=== PATIENT | female | born 1940 | race Two or more races ===

== ENCOUNTER 2025-03-14 17:20 | Inpatient (IN) | payer OTHER, MEDICAID ==
[~2025-03-14] VITALS: Ht 162.6 cm; Wt 80.0 kg
--- NOTE | 2025-03-14 17:35 | ECG ---
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
--- NOTE | 2025-03-14 17:53 | ED.PDOC ---
HPI Comments HPI: 85 year old female presents to the ED with a chief complaint of chest pain onset today around 10:00. Daughter states patient began experiencing LT sided chest pain as well as LT arm numbness. Upon ED arrival, patient states symptoms have slightly improved. Denies fever, chills, shortness of breath, dizziness, headache, nausea, vomiting. No other symptoms or modifying factors present at this time Initial Vitals BP: 189/77 HR: 83 RR:18 O2 Sat: 96% Temp: 97.5 F Past Medical history: HTN, HLD, Glaucoma Past Surgical history: RT foot surgery, eye surgery Medications: Denies Social History: Denies smoking, ETOH, and drug use. Allergies: NKDA Coleman; cp, htn, LUE NUMBNESS normal exam. obese. HPI: Poor Historian. REVIEW OF SYSTEMS: CONSTITUTIONAL: Denies acute: fever, diaphoresis, chills, generalized weakness. HEAD: Denies acute: headache, photophobia Eyes: Denies acute: Double vision, vision loss, eye pain, eye discharge. EARS: Denies acute: tinnitus, hearing loss, ear discharge, ear pain, THROAT: Denies acute: sore throat, swelling, difficulty swallowing , pain with swallowing, change in voice. NECK: Denies acute: neck pain, neck swelling, stiff neck. HEART: Denies acute : , palpitations, LUNGS: Denies acute: SOB, wheezing, cough, hemoptysis ABDOMEN: Denies acute: abdominal pain, Nausea, Vomiting, diarrhea, melena , hematemesis, hematochezia SKIN: Denies acute: rash, redness, lesions, itchiness. EXTREMITIES: Denies acute: calf pain, weakness, Denies acute: Low back pain. Neuro: Denies acute: focal neurological deficit, motor or sensory focal neurological deficit, tremors, seizure like activity, confusion, dizziness, change in mental status, loss of bowel or bladder function, cauda equina like symptoms. : Denies acute: dysuria, hematuria, flank pain, increase in urinary frequency. PSYCH: Denies acute: hallucination, suicidal ideation, homicidal ideation. FEMALE: Denies acute: abnormal vaginal bleeding, foul odor, unusual discharge. PHYSICAL EXAM: General: ----no----acute distress, awake and alert. Head: normocephalic, atraumatic. No raccoon's eyes, no arevalo sign. Neck: supple, trachea is midline, no swelling. Throat: Normal phonation. Eyes:, no erythema, no purulent discharge, no proptosis, no icterus. Heart: regular rate, regular rhythm, no significant murmur appreciated. Lungs: no apparent respiratory distress, Able to speak in full sentences. No wheezing, no rhonchi, no crackles. No stridors Clear to auscultation bilaterally. Abdomen: non tender to palpation, non distended, soft, no guarding, no rebound, + bowel sounds. Obese Neuro: Awake, Alert, oriented to name, self, situation, follows commands GCS=15. Speech is normal. Skin: no petechia, no purpura, no cyanosis, non-pale, not jaundice. Lower extremities: --trace - Pitting edema no deformity, no focal swelling, no calf TTP. Makes eye contact. moves all four extremities. Face: no apparent facial droop. Ambulating in the ED independently. ED COURSE: DISCLAIMER: This medical document was created using an electronic medical record system with voice recognition software and computerized dictation system. Although this doc ument has been carefully reviewed, there might still be some phonetic and typographical errors. Occasional wrong-word or "sound-alike" substitutions may have occurred due to the inherent limitations of voice recognition software. These areas are purely typographical due to imperfections of the software programs and do not reflect any compromise in the patient's medical care. Please read the chart carefully and recognize, using context, where these substitutions have occurred. 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 Was a procedure done?: No X-Ray, Labs, Meds, VS Vital Signs Date Time Temp Pulse Resp B/P (MAP) Pulse Ox O2 Delivery O2 Flow Rate FiO2 03/14/25 19:46 97.8 78 18 134/95 (108) 96 97.8 03/14/25 17:53 79 03/14/25 17:34 79 03/14/25 17:25 97.5 83 18 189/77 96 97.5 Lab Test 03/14/25 19:20 03/14/25 18:09 Range/Units Troponin I High Sensitivity 3 L 3 L </=34 ng/L White Blood Count 6.1 4.4-10.8 10^3/uL Red Blood Count 4.13 4.0-5.20 10^6/uL Hemoglobin 13.6 12.2-16.2 g/dL Hematocrit 39.5 36.0-46.0 % Mean Corpuscular Volume 95.6 80.0-100.0 fL Mean Corpuscular Hemoglobin 33.0 H 28.0-32.0 pg Mean Corpuscular Hemoglobin Concent 34.5 32.0-36.0 g/dL Red Cell Distribution Width 12.0 11.8-14.3 % Platelet Count 200 140-450 10^3/uL Mean Platelet Volume 8.9 6.9-10.8 fL Neutrophils (%) (Auto) 61.1 37.0-80.0 % Lymphocytes (%) (Auto) 32.2 10.0-50.0 % Monocytes (%) (Auto) 6.1 0.0-12.0 % Eosinophils (%) (Auto) 0.3 0.0-7.0 % Basophils (%) (Auto) 0.3 0.0-2.0 % Neutrophils # (Auto) 3.7 1.6-8.6 10 ^3/uL Lymphocytes # (Auto) 2.0 0.4-5.4 10 ^3/uL Monocytes # (Auto) 0.4 0-1.3 10 ^3/uL Eosinophils # (Auto) 0 0-0.8 10 ^3/uL Basophils # (Auto) 0 0-0.2 10 ^3/uL Nucleated Red Blood Cells 0.1 % Sodium Level 139 136-145 mmol/L Potassium Level 3.5 3.5-5.1 mmol/L Chloride Level 106 98-107 mmol/L Carbon Dioxide Level 24 20-31 mmol/L Anion Gap 9 5-15 Blood Urea Nitrogen 17 9-23 mg/dL Creatinine 0.77 0.550-1.02 mg/dL Glomerular Filtration Rate Calc 76 >90 mL/min BUN/Creatinine Ratio 22.1 H 10.0-20.0 Serum Glucose 161 H 74-106 mg/dL Calcium Level 9.4 8.7-10.4 mg/dL Total Bilirubin 0.3 0.2-1.0 mg/dL Aspartate Amino Transferase (AST) 34 13-40 U/L Alanine Aminotransferase (ALT) 45 H 7-40 U/L Alkaline Phosphatase 53 46-116 U/L B-Type Natriuretic Peptide 58.66 0-100 pg/mL Total Protein 7.4 5.7-8.2 g/dL Albumin 4.4 3.2-4.8 g/dL [place] [id number] Ph: [phone] DIAGNOSTIC IMAGING Diagnostic Imaging Report : [id number] Signed PATIENT: NATALEE LOCKHART ACCT: [id number] UNIT: [id number] : 1940 LOC: ER ROOM / BED: / AGE / SEX: 85 / F ADM STATUS: REG ER SERVICE [id number] ORDERING PHYSICIAN: OLIVIA MENSAH DO PROCEDURE(s): CXRP - CHEST PORTABLE REASON: cp ORDER NUMBER(s): [id number], ACCESSION NUMBER(s): [id number] CHEST RADIOGRAPH INDICATION: cp TECHNIQUE: Single frontal view of the chest was obtained COMPARISON: None FINDINGS: Lines and Tubes: None Lungs: Scattered reticular opacities may reflect atypical pneumonia or pulmonary interstitial edema. No focal consolidation. Pleura: No effusion. No pneumothorax. Cardiomediastinal contours: Unremarkable Bones: No acute osseous abnormality. IMPRESSION: 1. Scattered reticular opacities may reflect atypical pneumonia or pulmonary interstitial edema. No focal consolidation. ATED BY: MEGA BUSBY MD DICTATED DATE/TIME: 03/14/251812 SIGNED BY: MEGA BUSBY MD SIGNED DATE/TIME: 03/14/251812 CC: Time of 1ST Reevaluation: 18:20 Reevaluation 1ST: Unchanged Patient Education/Counseling: Diagnosis, Treatment Family Education/Counseling: Diagnosis, Treatment Departure 1 Departure Time of Disposition: 18:54 Impression: Primary Impression: Chest pain Additional Impression: Hypertension Disposition: 09 ADMITTED INPATIENT Admit to: Tele Condition: Guarded Discharged With: Self Critical Care Note Critical Care Time?: No Heart Score Heart Score: Heart Score Response (Comments) Value Age >65 2 Total 2 I personally scribed for OLIVIA MENSAH DO ([email or web address]) on 03/14/25 at 17:53. E lectronically submitted by Sariah Multani ([email or web address]). I personally scribed for OLIVIA MENSAH DO ([email or web address]) on 03/14/25 at 20:11. Elect ronically submitted by Sariah Multani ([email or web address]). OLIVIA MENSAH DO Mar 14, 2025 17:53
--- NOTE | 2025-03-14 18:15 | DVH ---
CHEST RADIOGRAPH INDICATION: cp TECHNIQUE: Single frontal view of the chest was obtained COMPARISON: None FINDINGS: Lines and Tubes: None Lungs: Scattered reticular opacities may reflect atypical pneumonia or pulmonary interstitial edema. No focal consolidation. Pleura: No effusion. No pneumothorax. Cardiomediastinal contours: Unremarkable Bones: No acute osseous abnormality. IMPRESSION: 1. Scattered reticular opacities may reflect atypical pneumonia or pulmonary interstitial edema. No focal consolidation.
[2025-03-14 18:49] LABS: Hematocrit 39.5 % (36.0-46.0); Hemoglobin 13.6 g/dL (12.2-16.2); Mean Corpuscular Hemoglobin 33.0 pg (28.0-32.0); Mean Corpuscular Volume 95.6 fL (80.0-100.0); Nucleated Red Blood Cells % 0.1 %
[2025-03-14 19:03] LABS: Alkaline Phosphatase 53 U/L (46-116)
[2025-03-14 19:04] LABS: Albumin 4.4 g/dL (3.2-4.8); Anion Gap 9 (5-15); BUN/Creatinine Ratio 22.1 (10.0-20.0); Bilirubin, Total 0.3 mg/dL (0.2-1.0); Blood Urea Nitrogen 17 mg/dL (9-23); Calcium 9.4 mg/dL (8.7-10.4); Carbon Dioxide 24 mmol/L (20-31); Chloride 106 mmol/L (98-107); Potassium 3.5 mmol/L (3.5-5.1); Sodium 139 mmol/L (136-145); Total Protein 7.4 g/dL (5.7-8.2)
[2025-03-14 19:10] LABS: Alanine Aminotransferase 45 U/L (7-40); Glucose 161 mg/dL (74-106)
[2025-03-14] MEDS: ASPirin-EC 325mg tab PO ONE (20:43)
[2025-03-14] MEDS: NITROGLYCERIN 0.4 MG SL TAB SL ONE (20:44)
[2025-03-14] MEDS ORDERED: NITROGLYCERIN 0.4 MG SL TAB SL PRN (20:45)
[2025-03-14] MEDS ORDERED: ONDANSETRON HCL 4 MG/2 ML VIAL IV PRN (20:45)
[2025-03-14] MEDS ORDERED: MORPHINE SULFATE INJ 2 MG/ml SYRG IV PRN (20:45)
--- NOTE | 2025-03-14 21:24 | DVHHPRES ---
History of Present Illness Resident Creating Document: NAEEM BRAVO RESIDENT History of Present Illness Patient is a 85-year-old Polish-speaking female with past medical history of hypertension, hyperlipidemia, came to the ED with chief complaints of chestpain which is 7/10 in intensity, nonradiating, increased with exertion, decreased with rest and associated with left arm numbness since 1 week. Patient states with the pain comes and goes and is also associated with hot flashes, and mild shortness of breath. PMHx: hypertension, hyperlipidemia PSHx: toe surgery, cataract surgery Family history: reviewed, noncontributory Social history: denies smoking, drinking, drug use Home medication: pravastatin, hydrochlorothiazide Allergic history: denies Patient seen in the lobby. Patient describes chest pressure as for over 10 int ensity, has left arm numbness and denies any fever, chills, nausea, vomiting, diarrhea, abdominal pain, heartburn , shortness for breath. Patient's chest every time she gets a hot flashes she gets daily and these worsen the symptoms since 1 week. Review of Systems Constitutional: No: Fever, Chills, Sweats, Weakness, Malaise, Other Eyes: No: Pain, Vision change, Conjunctivae inflammation, Eyelid inflammation, Other, Redness ENT: No: Ear pain, Ear discharge, Nose pain, Nose discharge, Nose congestion, Mouth pain, Mouth swelling, Throat pain, Throat swelling, Other Respiratory: Shortness of breath; No: Cough, Dry, SOB with excertion, Wheezing, Hemoptysis, Pleuritic Pain, Sputum, Wheezing, Other Cardiovascular: Chest Pain; No: Palpitations, Orthopnea, Paroxysmal Noc. Dyspnea, Edema, Lt Headedness, Other Gastrointestinal: No: Nausea, Vomiting, Abdominal Pain, Diarrhea, Constipation, Melena, Hematochezia, Other Genitourinary: No Dysuria, No Frequency, No Incontinence, No Hematuria, No Retention, No Other Musculoskeletal: No: other, neck pain, shoulder pain, arm pain, back pain, hand pain, leg pain, foot pain Skin: No: Rash, Lesions, Jaundice, Bruising, Other Neurological: No: Weakness, Numbness, Incoordination, Change in speech, Confusion, Seizures, Other Allergies: Coded Allergies: NO KNOWN ALLERGIES (Unverified , 03/14/25) Medications Current Medications Medications Dose Ordered Sig/Rola Route Start Time Stop Time Status Last Admin Dose Admin Ondansetron HCl 4 mg Q4HP PRN IV 03/14/25 20:45 Enoxaparin Sodium 40 mg DAILY SC 03/15/25 10:00 Nitroglycerin 0.4 mg Q5MINP PRN SL 03/14/25 20:45 Morphine Sulfate 2 mg Q30M PRN IV 03/14/25 20:45 Atorvastatin Calcium 40 mg HS PO 03/14/25 22:00 Lisinopril 10 mg DAILY PO 03/15/25 10:00 Metoprolol Succinate 25 mg DAILY PO 03/15/25 10:00 Aspirin 81 mg DAILY PO 03/15/25 10:00 Exam Vital Signs Vital Signs Date Time Temp Pulse Resp B/P (MAP) Pulse Ox O2 Delivery O2 Flow Rate FiO2 03/14/25 20:51 97.8 76 17 161/72 (101) 94 97.8 Exam General: Patient alert and oriented in person, place and time. Patient following commands. HEENT: Normocephalic, atraumatic, moist mucous membranes Respiratory/pulmonary: Clear lungs bilaterally, vesicular murmurs present in almost all lung donaldson, no associated crackles or wheezes. Cardiovascular: Normal heart sounds S1 and S2 with no associated murmurs Abdomen: Abdomen nondistended, there is no pain to palpation in any of the abdominal quadrants, no palpable masses. Extremities: There is no peripheral edema present at the lower extremities. Peripheral Pulses: 3+ Radial (R). 3+ Radial (L). 3+ Dorsalis pedis (R). 3+ Dorsalis pedis(L) Skin: No rashes or pruritus, there is no sacral edema present at this time. Neurological: Intact cranial nerves with no focal neurologic deficits Labs/Xrays Labs Test 03/14/25 19:20 03/14/25 18:09 Range/Units Troponin I High Sensitivity 3 L </=34 ng/L White Blood Count 6.1 4.4-10.8 10^3/uL Red Blood Count 4.13 4.0-5.20 10^6/uL Hemoglobin 13.6 12.2-16.2 g/dL Hematocrit 39.5 36.0-46.0 % Mean Corpuscular Volume 95.6 80.0-100.0 fL Mean Corpuscular Hemoglobin 33.0 H 28.0-32.0 pg Mean Corpuscular Hemoglobin Concent 34.5 32.0-36.0 g/dL Red Cell Distribution Width 12.0 11.8-14.3 % Platelet Count 200 140-450 10^3/uL Mean Platelet Volume 8.9 6.9-10.8 fL Neutrophils (%) (Auto) 61.1 37.0-80.0 % Lymphocytes (%) (Auto) 32.2 10.0-50.0 % Monocytes (%) (Auto) 6.1 0.0-12.0 % Eosinophils (%) (Auto) 0.3 0.0-7.0 % Basophils (%) (Auto) 0.3 0.0-2.0 % Neutrophils # (Auto) 3.7 1.6-8.6 10 ^3/uL Lymphocytes # (Auto) 2.0 0.4-5.4 10 ^3/uL Monocytes # (Auto) 0.4 0-1.3 10 ^3/uL Eosinophils # (Auto) 0 0-0.8 10 ^3/uL Basophils # (Auto) 0 0-0.2 10 ^3/uL Nucleated Red Blood Cells 0.1 % Sodium Level 139 136-145 mmol/L Potassium Level 3.5 3.5-5.1 mmol/L Chloride Level 106 98-107 mmol/L Carbon Dioxide Level 24 20-31 mmol/L Anion Gap 9 5-15 Blood Urea Nitrogen 17 9-23 mg/dL Creatinine 0.77 0.550-1.02 mg/dL Glomerular Filtration Rate Calc 76 >90 mL/min BUN/Creatinine Ratio 22.1 H 10.0-20.0 Serum Glucose 161 H 74-106 mg/dL Calcium Level 9.4 8.7-10.4 mg/dL Total Bilirubin 0.3 0.2-1.0 mg/dL Aspartate Amino Transferase (AST) 34 13-40 U/L Alanine Aminotransferase (ALT) 45 H 7-40 U/L Alkaline Phosphatase 53 46-116 U/L B-Type Natriuretic Peptide 58.66 0-100 pg/mL Total Protein 7.4 5.7-8.2 g/dL Albumin 4.4 3.2-4.8 g/dL SEPSIS Sepsis Screen Date sepsis recognized/suspect: Mar 14, 2025 Time Sepsis recognized/suspect: 2043 Recent Procedure: No On Antibiotic Therapy: No Respiratory Rate >20: No Heart Rate >90: No Temp<36 C (96.8 F) or >38.3 C: No SBP <90 or MAP <65 mmHG: No New Acute Mental Status Change: No Is the patient on CPAP, BIPAP,: No Physician Orders Stock Car Driver (03/14/25 ) Chest Portable (03/14/25 17:50) Electrocardigram (03/14/25 20:32) Admit (03/14/25 20:43) Ondansetron Hcl (Zofran) (03/14/25 20:45) Enoxaparin Sodium (Lovenox) (03/15/25 10:00) Complete Blood Count (03/15/25 04:00) Comprehensive Metabolic Panel (03/15/25 04:00) Cardiac Diet-2gna,Lofat,Lochol (03/15/25 Breakfast) Condition: Serious (03/14/25 20:43) Bedrest With Bathroom Privileg (03/14/25 20:43) Nitroglycerin Sublingual (Ntrostat Subli (03/14/25 20:45) Morphine Sulfate Injection (03/14/25 20:45) Oxygen By Nasal Cannula (03/14/25 20:43) Stat Ekg For Chest Pain (03/14/25 20:43) Notify Md Of Changes From Base (03/14/25 20:43) Rink Rat For 24 Hours (03/14/25 20:43) Emergency Dysrhythmia Protocol (03/14/25 20:43) Rhythm Strips Once Every Shift (03/14/25 20:43) Urinalysis (03/14/25 20:49) Drug Screen (03/14/25 20:49) Lipid Panel (03/14/25 20:49) Hemoglobin A1c (03/14/25 20:49) Atorvastatin (Lipitor) (03/14/25 22:00) Lisinopril Tablet (Zestril Tablet) (03/15/25 10:00) Metoprolol Xl Succinate (Toprol Xl) (03/15/25 10:00) Aspirin Chewable Tablet (03/15/25 10:00) Pantoprazole Tablet (Protonix Tablet) (03/15/25 06:00) Vital Signs Date Time Temp Pulse Resp B/P (MAP) Pulse Ox O2 Delivery O2 Flow Rate FiO2 03/14/25 20:51 97.8 76 17 161/72 (101) 94 97.8 03/14/25 20:44 97.8 76 17 161/72 (101) 94 97.8 03/14/25 20:44 161/72 03/14/25 19:46 97.8 78 18 134/95 (108) 96 97.8 03/14/25 17:53 79 03/14/25 17:34 79 03/14/25 17:25 97.5 83 18 189/77 96 97.5 Laboratory Tests Test 03/14/25 18:09 White Blood Count 6.1 10^3/uL (4.4-10.8) Medications Medications Dose Ordered Sig/Rola Route Start Time Stop Time Status Last Admin Dose Admin Aspirin 325 mg ONCE ONCE PO 03/14/25 18:00 03/14/25 18:01 DC 03/14/25 20:43 325 MG Nitroglycerin 0.4 mg ONCE ONCE SL 03/14/25 18:00 03/14/25 18:01 DC 03/14/25 20:44 0.4 MG Assessment/Plan Assessment/Plan Chest pain, rule out ACS unstable angina hypertensive urgency hypertension Hyperlipidemia - EKG reviewed and unremarkable - aspirin loading dose - aspirin 81 mg - atorvastatin 40 mg - lisinopril 10 mg - metoprolol succinate 25 mg - check HbA1c - check lipid panel Obesity BMI 30.2 - patient counseled on exercise, diet, lifestyle modification for 18 minutes Diet: Cardiac PPI prophylaxis: pantoprazole DVT prophylaxis: Lovenox Goals of care addressed with the patient for more than 27 minutes: Full code status Case discussed with Dr. Anderson , patient and nurse Plan discussed with: Patient My Orders Orders - NAEEM BRAVO RESIDENT Procedure Category Date Status Time Admit ADMIT 03/14/25 Transmitted 20:43 Ondansetron Hcl PHA 03/14/25 In Process (Zofran) 20:45 Enoxaparin Sodium PHA 03/15/25 In Process (Lovenox) 10:00 Complete Blood Count LAB 03/15/25 Verified 04:00 Comprehensive LAB 03/15/25 Verified Metabolic Panel 04:00 Cardiac DIET 03/15/25 Transmitted Diet-2gna,Lofat,Lochol Breakfast Condition: Serious VIKTOR 03/14/25 In Process 20:43 Bedrest With Bathroom VIKTOR 03/14/25 In Process Privileg 20:43 Nitroglycerin PHA 03/14/25 In Process Sublingual (Ntrostat 20:45 Morphine Sulfate PHA 03/14/25 In Process Injection 20:45 Oxygen By Nasal RT 03/14/25 Transmitted Cannula 20:43 Stat Ekg For Chest VIKTOR 03/14/25 In Process Pain 20:43 Notify Of Changes VIKTOR 03/14/25 In Process From Base 20:43 Rink Rat For [facility] 03/14/25 In Process 24 Hours 20:43 Emergency Dysrhythmia [facility] 03/14/25 In Process Protocol 20:43 Rhythm Strips Once VIKTOR 03/14/25 In Process Every Shift 20:43 Urinalysis LAB 03/14/25 Logged 20:49 Drug Screen LAB 03/14/25 Logged 20:49 Lipid Panel LAB 03/14/25 In Process 20:49 Hemoglobin A1c LAB 03/14/25 In Process 20:49 Atorvastatin (Lipitor) PHA 03/14/25 In Process 22:00 Lisinopril Tablet PHA 03/15/25 In Process (Zestril Tablet) 10:00 Metoprolol Xl PHA 03/15/25 In Process Succinate (Toprol Xl) 10:00 Aspirin Chewable PHA 03/15/25 In Process Tablet 10:00 Pantoprazole Tablet PHA 03/15/25 Logged (Protonix Tablet) 06:00 Visit Coding STANDARD RES Billing Provider: STERLING ANDERSON MD Date of Service if different f: Mar 14, 2025 Common Visit Codes: [id number] INP/OBS CARE (HIGH) Secondary Visit Codes: [id number] CARE PLAN 30 MINUTES NAEEM BRAVO RESIDENT Mar 14, 2025 21:24
[2025-03-14] MEDS: ATORVASTATIN 20 MG TAB PO SCH (21:33)
[2025-03-14] MEDS: LISINOPRIL 5 MG TAB PO ONE (21:34)
[2025-03-14 21:53] LABS: Urine Protein, UAD Negative (Negative)
[2025-03-14 21:53] LABS: Cholesterol 197 mg/dL (< 200); HDL Cholesterol 59 mg/dL (40-59)
[2025-03-14 21:56] LABS: Triglycerides 157 mg/dL (< 150)
[2025-03-14 22:02] LABS: Amphetamine Screen, Urine Neg (NEGATIVE); Barbiturate Scree,Urine Neg (NEGATIVE); Benzodiazephine Screen, Urine Neg (NEGATIVE); Cannabinoid Screen, Urine Neg (NEGATIVE); Cocaine Screen, Urine Neg (NEGATIVE); Opiate Scree,Urine Neg (NEGATIVE); Phencyclidine Screen, Urine Neg (NEGATIVE)
[2025-03-14 23:01] VITALS: PULSE 79; RESP 19; O2SAT 96
[2025-03-14] MEDS ORDERED: HYDR25TA5 PO (23:11)
[2025-03-14] MEDS ORDERED: PRAV20TA3 PO (23:11)
[2025-03-15] VITALS (8 sets, daily range): BP systolic 105–142; BP diastolic 46–78; PULSE 56–93; RESP 12–19; TEMP 97.3–98.7; O2SAT 95–99
[2025-03-15] MEDS: PANTOPRAZOLE 40 MG TAB PO SCH (05:39)
[2025-03-15 05:58] LABS: Hematocrit 38.5 % (36.0-46.0); Hemoglobin 13.2 g/dL (12.2-16.2); Mean Corpuscular Hemoglobin 32.8 pg (28.0-32.0); Mean Corpuscular Volume 95.3 fL (80.0-100.0); Nucleated Red Blood Cells % 0.2 %
[2025-03-15 06:17] LABS: Alanine Aminotransferase 37 U/L (7-40); Albumin 3.8 g/dL (3.2-4.8); Anion Gap 10 (5-15); BUN/Creatinine Ratio 25.0 (10.0-20.0); Bilirubin, Total 0.5 mg/dL (0.2-1.0); Blood Urea Nitrogen 14 mg/dL (9-23); Calcium 9.0 mg/dL (8.7-10.4); Carbon Dioxide 26 mmol/L (20-31); Chloride 105 mmol/L (98-107); Sodium 141 mmol/L (136-145); Total Protein 6.4 g/dL (5.7-8.2)
[2025-03-15 06:20] LABS: Alkaline Phosphatase 42 U/L (46-116); Glucose 124 mg/dL (74-106); Potassium 3.3 mmol/L (3.5-5.1)
[2025-03-15 07:17] LABS: INR 1.02 (0.9-1.15); Partial Thromboplastin Time 25.5 SEC (24.5-34.5); Prothrombin Time 10.8 sec (9.3-11.8)
[2025-03-15] MEDS: LISINOPRIL 5 MG TAB PO SCH (10:14)
[2025-03-15] MEDS: METOPROLOL SUCCINATE XL 50 MG TAB PO SCH (10:14)
[2025-03-15] MEDS: ENOXAPARIN SOD 40 MG/0.4 ML SYRINGE SC SCH (10:16)
--- NOTE | 2025-03-15 13:28 | DVHPN2 ---
Subjective Patient denies any symptoms at this time. Reviewed: Care Plan, H&P, Labs, Medications Changes from previous H/P or p: No Changes General: Per HPI Eyes: No Pain, No Vision change, No Conjunctivae inflammation, No Eyelid inflammation, No Other, No Redness ENT: No Ear pain, No Ear discharge, No Nose pain, No Nose discharge, No Nose congestion, No Mouth pain, No Mouth swelling, No Throat pain, No Throat swelling, No Other Cardiovascular: Chest Pain; No Palpitations, No Orthopnea, No Paroxysmal Noc. Dyspnea, No Edema, No Lt Headedness, No Other Respiratory: No Cough, No Dry; Shortness of breath; No SOB with excertion, No Wheezing, No Hemoptysis, No Pleuritic Pain, No Sputum, No Other Gastrointestinal: No Nausea, No Vomiting, No Abdominal Pain, No Diarrhea, No Constipation, No Melena, No Hematochezia, No Other Genitourinary: No Dysuria, No Frequency, No Incontinence, No Hematuria, No Retention, No Other Musculoskeletal: No other, No neck pain, No shoulder pain, No arm pain, No back pain, No hand pain, No leg pain, No foot pain Skin: No Rash, No Lesions, No Jaundice, No Bruising, No Other Objective Vitals Vital Signs Date Time Temp Pulse Resp B/P (MAP) Pulse Ox O2 Delivery O2 Flow Rate FiO2 03/15/25 12:48 97.3 56 17 130/69 (89) 99 97.3 03/15/25 08:00 Room Air* 0 21 21 Intake/Output Intake and Output 03/15/25 07:00 Intake Total 550 ml Balance 550 ml Intake Oral 550 ml # Voids 2 General Appearance: Alert, Oriented X3, Cooperative, No acute distress HEENT: Atraumatic, PERRLA Lungs: Clear to auscultation, Normal air movement Cardiovascular: Normal S1, Normal S2 Abdomen: Normal bowel sounds, Soft, No tenderness Genitourinary: No Apparent Abnormalities Musculoskeletal: Normal sensory function, Normal motor function Neuro: Normal gait, Normal speech Skin: Dry, Intact Psych/Mental Status: Mental status NL, Mood NL Medications Current Medications Medications Dose Ordered Sig/Rola Route Start Time Stop Time Status Last Admin Dose Admin Ondansetron HCl 4 mg Q4HP PRN IV 03/14/25 20:45 Enoxaparin Sodium 40 mg DAILY SC 03/15/25 10:00 03/15/25 10:16 40 MG Atorvastatin Calcium 40 mg HS PO 03/14/25 22:00 03/14/25 21:33 40 MG Lisinopril 10 mg DAILY PO 03/15/25 10:00 03/15/25 10:14 10 MG Metoprolol Succinate 25 mg DAILY PO 03/15/25 10:00 03/15/25 10:14 25 MG Aspirin 81 mg DAILY PO 03/15/25 10:00 03/15/25 10:15 81 MG Pantoprazole Sodium 40 mg DAILY@0600 PO 03/15/25 06:00 03/15/25 05:39 40 MG Laboratory Results Laboratory Tests 03/15/25 05:20 Chemistry Test 03/14/25 18:09 03/15/25 05:20 Albumin 4.4 g/dL (3.2-4.8) 3.8 g/dL (3.2-4.8) Calcium Level 9.4 mg/dL (8.7-10.4) 9.0 mg/dL (8.7-10.4) Total Protein 7.4 g/dL (5.7-8.2) 6.4 g/dL (5.7-8.2) Coagulation Test 03/15/25 05:20 Prothrombin Time 10.8 sec (9.3-11.8) Prothrombin Time INR 1.02 (0.9-1.15) Activated Partial Thromboplast Time 25.5 SEC (24.5-34.5) Lipid panel Test 03/14/25 19:20 Cholesterol Level 197 mg/dL (< 200) HDL Cholesterol 59 mg/dL (40-59) Triglycerides Level 157 mg/dL (< 150) H Cardiac Markers Test 03/14/25 18:09 B-Type Natriuretic Peptide 58.66 pg/mL (0-100) LFT Test 03/14/25 18:09 03/15/25 05:20 Alanine Aminotransferase (ALT) 45 U/L (7-40) H 37 U/L (7-40) Alkaline Phosphatase 53 U/L (46-116) 42 U/L (46-116) L Aspartate Amino Transferase (AST) 34 U/L (13-40) 28 U/L (13-40) Total Bilirubin 0.3 mg/dL (0.2-1.0) 0.5 mg/dL (0.2-1.0) HgA1c, TSH Test 03/14/25 18:09 03/15/25 05:20 Hemoglobin A1c 7.9 % A1C (<5.7) H Thyroid Stimulating Hormone (TSH) 1.69 uIU/mL (0.55-4.78) Urinalysis Test 03/14/25 20:57 Urine Color Colorless (Yellow) Urine Clarity Clear (Clear) Urine pH 5.5 (5.0-9.0) Urine Specific [place] 1.009 (1.001-1.035) Urine Protein Negative (Negative) Urine Ketones Negative (Negative) Urine Blood Negative /uL (Negative) Urine Nitrite Negative (Negative) Urine Bilirubin Negative (Negative) Urine Urobilinogen Normal mg/dL (Negative) Urine Leukocyte Esterase 2+ /uL (Negative) Urine RBC <1 /hpf (0 - 4) Urine Microscopic WBC 6 /HPF (0-5) H Urine Squamous Epithelial Cells Few /hpf (<5) Urine Bacteria None seen /hpf (None Seen) Urine Glucose Normal mg/dL (Normal) Labs and/or images reviewed: Labs reviewed by me, Image(s) reviewed by me Assessment/Plan Assessment/Plan Impression: -ACS -dyslipidemia -primary hypertension -diabetes mellitus -obesity Plan: -cardiology consultation -echocardiogram, results pending -ACS protocol -regular insulin sliding scale -troponins x3 negative Total time spent with patient discussing and formulating plan of care: 35 minutes. This medical document was created using an electronic medical record system with [employer] dictation system. Although this document has been carefully reviewed, there may still be some phonetic and typographical errors. These areas are purely typographical due to imperfections of the software programs, and do not reflect any compromise in the patient's medical care. Plan discussed with: Patient, Other (RN) My Orders Orders - MALLORY NATH NP Procedure Category Date Status Time * Cardiology Consult CONS 03/15/25 Transmitted 13:18 Potassium Effervesent PHA 03/15/25 Verified Tab (Klor-Con/Ef) 13:30 Date of Service: Mar 15, 2025 Billing Provider: MALLORY NATH NP Common Visit Codes: [id number] INP/OBS CARE(HIGH) MALLORY NATH NP Mar 15, 2025 13:28
[2025-03-15] MEDS: POTASSIUM EFFERVESENT TAB 25 MEQ PO ONE (13:51)
--- NOTE | 2025-03-15 14:40 | DVHINCON2 ---
Date Seen: Mar 15, 2025 Referring Physician ANTONI Marques Reason for Consultation rule out acs History of Present Illness 85-year-old Polish speaking female with a past medical history of hypertension, type 2 diabetes, hyperlipidemia, glaucoma, and obesity presented to the emergency department due to uncontrolled blood pressure with systolic readings up to 175 mmHg, followed by onset of chest pressure radiating to the left arm accompanied by left arm numbness. In the ED, vitals signs showed BP 189/77 mmHg. A 12 lead EKG revealed normal sinus rhythm without acute ST-T abnormalities. Serial troponins were negative. During evaluation on telemetry, the patient remained in sinus rhythm and denied chest pain, diaphoresis, palpitations, syncope, shortness of breath, or dyspnea. Currently, BP is 130/69 mmHg while taking lisinopril 10 mg daily and metoprolol succinate 25 mg daily. Past Medical History As stated in HPI Past Surgical History Left toes surgery Glaucoma Family History: Patient reports no known family medical history. Family History Reviewed, non-contributory to the management of this case. Social History The patient lives at home, denies smoking, alcohol or illicit drugs abuse. Allergies: Coded Allergies: NO KNOWN ALLERGIES (Unverified , 03/14/25) Home Meds Reported Medications Hctz (Hydrochlorothiazide) 25 Mg Tab, 1 TAB PO DAILY 03/14/25 Pravastatin Sodium (PRAVACHOL TABLET) 20 Mg Tb, 40 MG PO HS 03/14/25 Current Medications Current Medications Medications (Trade) Dose Ordered Sig/Rola Route PRN Reason Start Time Stop Time Status Last Admin Ondansetron HCl (Zofran) 4 mg Q4HP PRN IV NAUSEA / VOMITING 03/14/25 20:45 Enoxaparin Sodium (Lovenox) 40 mg DAILY SC 03/15/25 10:00 03/15/25 10:16 Nitroglycerin (Ntrostat Sublingual) 0.4 mg Q5MINP PRN SL FOR CHEST PAIN 03/14/25 20:45 03/14/25 23:09 DC Morphine Sulfate 2 mg Q30M PRN IV FOR CHEST PAIN 03/14/25 20:45 03/14/25 23:08 DC Atorvastatin Calcium (Lipitor) 40 mg HS PO 03/14/25 22:00 03/14/25 21:33 Lisinopril (Zestril Tablet) 10 mg DAILY PO 03/15/25 10:00 03/15/25 10:14 Metoprolol Succinate (Toprol Xl) 25 mg DAILY PO 03/15/25 10:00 03/15/25 10:14 Aspirin 81 mg DAILY PO 03/15/25 10:00 03/15/25 10:15 Pantoprazole Sodium (Protonix Tablet) 40 mg DAILY@0600 PO 03/15/25 06:00 03/15/25 05:39 Review of Systems Constitutional: No symptom reported Ears, Nose, & Throat: No symptom reported Eyes: No symptom reported Neurological: No symptoms reported Pulmonary/Respiratory: No symptom reported Cardiovascular: Elevated BP, chest pain Gastrointestinal: No symptom reported Genitourinary: No symptom reported Musculoskeletal: No symptom reported Skin: No symptom reported Psychiatric: No symptom reported Endocrine: No symptom reported Hematologic/Lymphatic: No symptom reported Vital Signs Vital Signs Date Time Temp Pulse Resp B/P (MAP) Pulse Ox O2 Delivery O2 Flow Rate FiO2 03/15/25 12:48 97.3 56 17 130/69 (89) 99 97.3 03/15/25 08:00 Room Air* 0 21 21 PROCEDURE(s): CXRP - CHEST PORTABLE REASON: cp ORDER NUMBER(s): [id number], ACCESSION NUMBER(s): [id number] CHEST RADIOGRAPH INDICATION: cp TECHNIQUE: Single frontal view of the chest was obtained COMPARISON: None FINDINGS: Lines and Tubes: None Lungs: Scattered reticular opacities may reflect atypical pneumonia or pulmonary interstitial edema. No focal consolidation. Pleura: No effusion. No pneumothorax. Cardiomediastinal contours: Unremarkable Bones: No acute osseous abnormality. IMPRESSION: 1. Scattered reticular opacities may reflect atypical pneumonia or pulmonary interstitial edema. No focal consolidation. Physical Exam INITIAL VITAL SIGNS: Reviewed by me GENERAL: Alert and interactive. No acute distress. HEAD: Head is normocephalic and atraumatic. EYES: EOMI, PERRL. No scleral icterus. No conjunctival injection. ENT: Moist mucous membranes. NECK: Supple, No masses, Full range of motion. RESPIRATORY: No tachypnea. Clear breath sounds bilaterally. No wheezing, rales , rhonchi. CV: Regular rate and rhythm. No murmurs, no edema. GI/: Active bowel sounds, soft, nondistended, nontender. No guarding. No rebound. No masses. No CVA tenderness. INTEGUMENTARY: Warm and dry. No obvious rashes. NEUROLOGIC: Alert and oriented. Face is symmetric. Speech is normal. Moves all extremities equally. Labs/Diagnostic Data Labs Test 03/15/25 05:20 03/14/25 20:57 03/14/25 19:20 03/14/25 18:09 Range/Units White Blood Count 4.1 #L 4.4-10.8 10^3/uL Red Blood Count 4.04 4.0-5.20 10^6/uL Hemoglobin 13.2 12.2-16.2 g/dL Hematocrit 38.5 36.0-46.0 % Mean Corpuscular Volume 95.3 80.0-100.0 fL Mean Corpuscular Hemoglobin 32.8 H 28.0-32.0 pg Mean Corpuscular Hemoglobin Concent 34.4 32.0-36.0 g/dL Red Cell Distribution Width 12.0 11.8-14.3 % Platelet Count 184 140-450 10^3/uL Mean Platelet Volume 8.8 6.9-10.8 fL Neutrophils (%) (Auto) 41.0 37.0-80.0 % Lymphocytes (%) (Auto) 48.7 10.0-50.0 % Monocytes (%) (Auto) 8.1 0.0-12.0 % Eosinophils (%) (Auto) 1.4 0.0-7.0 % Basophils (%) (Auto) 0.8 0.0-2.0 % Neutrophils # (Auto) 1.7 1.6-8.6 10 ^3/uL Lymphocytes # (Auto) 2.0 0.4-5.4 10 ^3/uL Monocytes # (Auto) 0.3 0-1.3 10 ^3/uL Eosinophils # (Auto) 0.1 0-0.8 10 ^3/uL Basophils # (Auto) 0 0-0.2 10 ^3/uL Nucleated Red Blood Cells 0.2 % Prothrombin Time 10.8 9.3-11.8 sec Prothrombin Time INR 1.02 0.9-1.15 Activated Partial Thromboplast Time 25.5 24.5-34.5 SEC Sodium Level 141 136-145 mmol/L Potassium Level 3.3 L 3.5-5.1 mmol/L Chloride Level 105 98-107 mmol/L Carbon Dioxide Level 26 20-31 mmol/L Anion Gap 10 5-15 Blood Urea Nitrogen 14 9-23 mg/dL Creatinine 0.56 0.550-1.02 mg/dL Glomerular Filtration Rate Calc 89 >90 mL/min BUN/Creatinine Ratio 25.0 H 10.0-20.0 Serum Glucose 124 H 74-106 mg/dL Calcium Level 9.0 8.7-10.4 mg/dL Total Bilirubin 0.5 0.2-1.0 mg/dL Aspartate Amino Transferase (AST) 28 13-40 U/L Alanine Aminotransferase (ALT) 37 7-40 U/L Alkaline Phosphatase 42 L 46-116 U/L Total Protein 6.4 5.7-8.2 g/dL Albumin 3.8 3.2-4.8 g/dL Thyroid Stimulating Hormone (TSH) 1.69 0.55-4.78 uIU/mL Urine Color Colorless Yellow Urine Clarity Clear Clear Urine pH 5.5 5.0-9.0 Urine Specific [place] 1.009 1.001-1.035 Urine Protein Negative Negative Urine Ketones Negative Negative Urine Blood Negative Negative /uL Urine Nitrite Negative Negative Urine Bilirubin Negative Negative Urine Urobilinogen Normal Negative mg/dL Urine Leukocyte Esterase 2+ Negative /uL Urine RBC <1 0 - 4 /hpf Urine Microscopic WBC 6 H 0-5 /HPF Urine Squamous Epithelial Cells Few <5 /hpf Urine Bacteria None seen None Seen /hpf Urine Glucose Normal Normal mg/dL Urine Opiates Screen Neg NEGATIVE Urine Fentanyl Screen Neg NEGATIVE Urine Barbiturates Screen Neg NEGATIVE Urine Phencyclidine Screen Neg NEGATIVE Urine Amphetamines Screen Neg NEGATIVE Urine Benzodiazepines Screen Neg NEGATIVE Urine Cocaine Screen Neg NEGATIVE Urine Cannabinoids Screen Neg NEGATIVE Troponin I High Sensitivity 3 L </=34 ng/L Triglycerides Level 157 H < 150 mg/dL Cholesterol Level 197 < 200 mg/dL LDL Cholesterol 125 H < 100 mg/dL HDL Cholesterol 59 40-59 mg/dL Hemoglobin A1c 7.9 H <5.7 % A1C B-Type Natriuretic Peptide 58.66 0-100 pg/mL PROCEDURE(s): CXRP - CHEST PORTABLE REASON: cp ORDER NUMBER(s): [id number], ACCESSION NUMBER(s): [id number] CHEST RADIOGRAPH INDICATION: cp TECHNIQUE: Single frontal view of the chest was obtained COMPARISON: None FINDINGS: Lines and Tubes: None Lungs: Scattered reticular opacities may reflect atypical pneumonia or pulmonary interstitial edema. No focal consolidation. Pleura: No effusion. No pneumothorax. Cardiomediastinal contours: Unremarkable Bones: No acute osseous abnormality. IMPRESSION: 1. Scattered reticular opacities may reflect atypical pneumonia or pulmonary i nterstitial edema. No focal consolidation. Assessment Hypertensive urgency, now improved Chest pain- likely noncardiac, ACS ruled out based on negative troponins and normal EKG Type 2 diabetes Hyperlipidemia Obesity Plan/Recommendation (Dr. Miranda ): * Echocardiogram to evaluate cardiac function * Continue lisinopril and metoprolol * Monitor BP and cardiac telemetry * Continue with aspirin and statins * Repeat EKG or troponin only if symptoms reoccur * Educate patient and BP control, medication compliance, and low-sodium diet Should the echocardiogram be unremarkable, outpatient cardiology follow-up is advised. This medical document was created using an electronic medical record system with voice recognition software and computerized dictation system. Although this document has been carefully reviewed, there might still be some phonetic and t ypographical errors. Occasional wrong-word or ``sound-alike substitutions may have occurred due to the inherent limitations of voice recognition software. These areas are purely typographical due to imperfections of the software programs and do not reflect any compromise in the patient's medical care. Please read the chart carefully and recognize, using context, where these kevin bstitutions have occurred. Plan discussed with: Patient Plan discussed with: Patient NYHA Physical activity limitations: NA Date of Service: Mar 15, 2025 Billing Provider: ELA MIRANDA MD Cardiology Common Codes: CONSULT ONLY TEJINDER PARKER [employer] INTERVIEWER Mar 15, 2025 14:40
--- NOTE | 2025-03-15 20:01 | DVHINCON2 ---
Date Seen: Mar 15, 2025 Referring Physician ANTONI Marques Reason for Consultation This is a 85-year-old Nepali speaking female with a past medical history of hypertension, type 2 diabetes, hyperlipidemia, glaucoma, and obesity presented to the emergency department due to uncontrolled blood pressure with systolic readings up to 175 mmHg, followed by onset of chest pressure radiating to the left arm accompanied by left arm numbness. In the ED, vitals signs showed BP 189/77 mmHg. A 12 lead EKG revealed normal sinus rhythm without acute ST-T abnormalities. Serial troponins were negative. During evaluation on telemetry, the patient remained in sinus rhythm and denied chest pain, diaphoresis, palpitations, syncope, shortness of breath, or dyspnea. Currently, BP is 130/69 mmHg while taking lisinopril 10 mg daily and metoprolol succinate 25 mg daily. History of Present Illness As stated in HPI Past Medical History Left toes surgery Glaucoma Family History: Patient reports no known family medical history. Allergies: Coded Allergies: NO KNOWN ALLERGIES (Unverified , 03/14/25) Home Meds Reported Medications Hctz (Hydrochlorothiazide) 25 Mg Tab, 1 TAB PO DAILY 03/14/25 Pravastatin Sodium (PRAVACHOL TABLET) 20 Mg Tb, 40 MG PO HS 03/14/25 Current Medications Current Medications Medications (Trade) Dose Ordered Sig/Rola Route PRN Reason Start Time Stop Time Status Last Admin Ondansetron HCl (Zofran) 4 mg Q4HP PRN IV NAUSEA / VOMITING 03/14/25 20:45 Enoxaparin Sodium (Lovenox) 40 mg DAILY SC 03/15/25 10:00 03/15/25 10:16 Nitroglycerin (Ntrostat Sublingual) 0.4 mg Q5MINP PRN SL FOR CHEST PAIN 03/14/25 20:45 03/14/25 23:09 DC Morphine Sulfate 2 mg Q30M PRN IV FOR CHEST PAIN 03/14/25 20:45 03/14/25 23:08 DC Atorvastatin Calcium (Lipitor) 40 mg HS PO 03/14/25 22:00 03/14/25 21:33 Lisinopril (Zestril Tablet) 10 mg DAILY PO 03/15/25 10:00 03/15/25 10:14 Metoprolol Succinate (Toprol Xl) 25 mg DAILY PO 03/15/25 10:00 03/15/25 10:14 Aspirin 81 mg DAILY PO 03/15/25 10:00 03/15/25 10:15 Pantoprazole Sodium (Protonix Tablet) 40 mg DAILY@0600 PO 03/15/25 06:00 03/15/25 05:39 Review of Systems Constitutional: No symptom reported Ears, Nose, & Throat: No symptom reported Eyes: No symptom reported Neurological: No symptoms reported Pulmonary/Respiratory: No symptom reported Cardiovascular: Elevated BP, chest pain Gastrointestinal: No symptom reported Genitourinary: No symptom reported Musculoskeletal: No symptom reported Skin: No symptom reported Psychiatric: No symptom reported Endocrine: No symptom reported Hematologic/Lymphatic: No symptom reported Vital Signs Vital Signs Date Time Temp Pulse Resp B/P (MAP) Pulse Ox O2 Delivery O2 Flow Rate FiO2 03/15/25 16:53 98.1 59 19 114/60 (78) 97 98.1 03/15/25 08:00 Room Air* 0 21 21 Physical Exam GENERAL: Alert and oriented x 3. No acute distress. EYES: PERRL, EOMI. Anicteric. HENT: Moist mucous membranes. LUNGS: Clear to auscultation bilaterally. CARDIOVASCULAR: Regular rate and rhythm. ABDOMEN: Soft, non-tender and non-distended. EXTREMITIES: No edema. NEUROLOGIC: No focal neurological deficits. SKIN: Warm, dry. Labs/Diagnostic Data Labs Test 03/15/25 05:20 03/14/25 20:57 03/14/25 19:20 03/14/25 18:09 Range/Units White Blood Count 4.1 #L 4.4-10.8 10^3/uL Red Blood Count 4.04 4.0-5.20 10^6/uL Hemoglobin 13.2 12.2-16.2 g/dL Hematocrit 38.5 36.0-46.0 % Mean Corpuscular Volume 95.3 80.0-100.0 fL Mean Corpuscular Hemoglobin 32.8 H 28.0-32.0 pg Mean Corpuscular Hemoglobin Concent 34.4 32.0-36.0 g/dL Red Cell Distribution Width 12.0 11.8-14.3 % Platelet Count 184 140-450 10^3/uL Mean Platelet Volume 8.8 6.9-10.8 fL Neutrophils (%) (Auto) 41.0 37.0-80.0 % Lymphocytes (%) (Auto) 48.7 10.0-50.0 % Monocytes (%) (Auto) 8.1 0.0-12.0 % Eosinophils (%) (Auto) 1.4 0.0-7.0 % Basophils (%) (Auto) 0.8 0.0-2.0 % Neutrophils # (Auto) 1.7 1.6-8.6 10 ^3/uL Lymphocytes # (Auto) 2.0 0.4-5.4 10 ^3/uL Monocytes # (Auto) 0.3 0-1.3 10 ^3/uL Eosinophils # (Auto) 0.1 0-0.8 10 ^3/uL Basophils # (Auto) 0 0-0.2 10 ^3/uL Nucleated Red Blood Cells 0.2 % Prothrombin Time 10.8 9.3-11.8 sec Prothrombin Time INR 1.02 0.9-1.15 Activated Partial Thromboplast Time 25.5 24.5-34.5 SEC Sodium Level 141 136-145 mmol/L Potassium Level 3.3 L 3.5-5.1 mmol/L Chloride Level 105 98-107 mmol/L Carbon Dioxide Level 26 20-31 mmol/L Anion Gap 10 5-15 Blood Urea Nitrogen 14 9-23 mg/dL Creatinine 0.56 0.550-1.02 mg/dL Glomerular Filtration Rate Calc 89 >90 mL/min BUN/Creatinine Ratio 25.0 H 10.0-20.0 Serum Glucose 124 H 74-106 mg/dL Calcium Level 9.0 8.7-10.4 mg/dL Total Bilirubin 0.5 0.2-1.0 mg/dL Aspartate Amino Transferase (AST) 28 13-40 U/L Alanine Aminotransferase (ALT) 37 7-40 U/L Alkaline Phosphatase 42 L 46-116 U/L Total Protein 6.4 5.7-8.2 g/dL Albumin 3.8 3.2-4.8 g/dL Thyroid Stimulating Hormone (TSH) 1.69 0.55-4.78 uIU/mL Urine Color Colorless Yellow Urine Clarity Clear Clear Urine pH 5.5 5.0-9.0 Urine Specific [place] 1.009 1.001-1.035 Urine Protein Negative Negative Urine Ketones Negative Negative Urine Blood Negative Negative /uL Urine Nitrite Negative Negative Urine Bilirubin Negative Negative Urine Urobilinogen Normal Negative mg/dL Urine Leukocyte Esterase 2+ Negative /uL Urine RBC <1 0 - 4 /hpf Urine Microscopic WBC 6 H 0-5 /HPF Urine Squamous Epithelial Cells Few <5 /hpf Urine Bacteria None seen None Seen /hpf Urine Glucose Normal Normal mg/dL Urine Opiates Screen Neg NEGATIVE Urine Fentanyl Screen Neg NEGATIVE Urine Barbiturates Screen Neg NEGATIVE Urine Phencyclidine Screen Neg NEGATIVE Urine Amphetamines Screen Neg NEGATIVE Urine Benzodiazepines Screen Neg NEGATIVE Urine Cocaine Screen Neg NEGATIVE Urine Cannabinoids Screen Neg NEGATIVE Troponin I High Sensitivity 3 L </=34 ng/L Triglycerides Level 157 H < 150 mg/dL Cholesterol Level 197 < 200 mg/dL LDL Cholesterol 125 H < 100 mg/dL HDL Cholesterol 59 40-59 mg/dL Hemoglobin A1c 7.9 H <5.7 % A1C B-Type Natriuretic Peptide 58.66 0-100 pg/mL Assessment Hypertensive urgency, now improved. Chest pain- likely noncardiac, ACS ruled out based on negative troponins and normal EKG. Type 2 diabetes. Hyperlipidemia. Obesity. Plan/Recommendation I agree with your ongoing assessment and care of plan. Patient has been seen by Eri Linares NP on my behalf. We have discussed the plan with the patient. Echocardiogram to evaluate cardiac function. Continue lisinopril and metoprolol. Monitor BP and cardiac telemetry. Continue with aspirin and statins. Repeat EKG or troponin only if symptoms reoccur. Educate patient and BP control, medication compliance, and low-sodium diet. Should the echocardiogram be unremarkable, outpatient cardiology follow-up is advised. Additional plan as per the hospital course. Plan discussed with: Patient NYHA Physical activity limitations: NA Date of Service: Mar 15, 2025 Billing Provider: ELA RO MD Cardiology Common Codes: [id number] INP/OBS CARE (High) Cardiology Consultation Codes: [id number] CONSULT <45MIN ELA RO MD Mar 15, 2025 20:01
[2025-03-16] VITALS (7 sets, daily range): BP systolic 109–138; BP diastolic 50–88; PULSE 53–71; RESP 14–18; TEMP 97.1–98.5; O2SAT 95–99
--- NOTE | 2025-03-16 01:58 | DVHSR ---
APPROVED REPORT EXAM: Two-dimensional and M-mode echocardiogram with Doppler and color Doppler. Blood Pressure: 132/78 mmHg INDICATION Rule out structural heart disease RISK FACTORS Obesity: Height: 5'4", Weight: 177 DIMENSIONS LVDd 3.6 (3.8-5.7cm) LA (2D) 2.8 (1.9-4.0cm) Aortic Root 2.6 (2.0-3.7cm) LVDs 2.4 (2.5-4.0cm) LA (MM) (1.9-4.0cm) Aortic Cusp Exc 1.5 (1.5-2.0cm) EF (%) 60.0 (55-70%) Rt. Atrium 2.9 (1.9-4.0cm) Asc. Aorta cm IVSd 1.1 (0.7-1.1cm) RV (D) (1.8-2.4cm) PWd 1.0 (0.7-1.1cm) Mitral Valve Mitral Mitral Stenosis E wave 1.09m/s MV Mean GR. mmHg A wave 1.00m/s MV Peak GR. mmHg E/A ratio 1.1 2D MVA cm2 DECEL Time 183ms PRESS 1/2 Time ms Aortic Valve Aortic Valve Aortic Stenosis V1 1.04m/s AO Mean GR. 3mmHg V2 1.32m/s AO Peak GR. 7mmHg LVOT Diameter 1.7 (1.8-2.4cm) Doppler RAY 1.79cm2 Pulmonic Valve V2 0.91m/s Tricuspid Valve TR Velocity 3.10m/s RVSP 47mmHg Other Information Technically limited study due to body habitus. Conclusion POSTERIOR MITRAL LEAFLET CALCIFIED TV,PV AN AORTIC VALVES ARE NORMAL MILD LVH LV EF IS 65% NORMAL RV FUNCTION NO EFFUSION
--- NOTE | 2025-03-16 14:39 | DVHDS2 ---
Discharge Summary Date of Admission Mar 14, 2025 at 20:43 Date of Discharge: Mar 16, 2025 Admitting Diagnosis Chest pain, hypertensive urgency Labs/Diagnostic Data: Laboratory Results Test 03/15/25 05:20 03/14/25 20:57 03/14/25 19:20 03/14/25 18:09 White Blood Count 4.1 10^3/uL (4.4-10.8) Red Blood Count 4.04 10^6/uL (4.0-5.20) Hemoglobin 13.2 g/dL (12.2-16.2) Hematocrit 38.5 % (36.0-46.0) Mean Corpuscular Volume 95.3 fL (80.0-100.0) Mean Corpuscular Hemoglobin 32.8 pg (28.0-32.0) Mean Corpuscular Hemoglobin Concent 34.4 g/dL (32.0-36.0) Red Cell Distribution Width 12.0 % (11.8-14.3) Platelet Count 184 10^3/uL (140-450) Mean Platelet Volume 8.8 fL (6.9-10.8) Neutrophils (%) (Auto) 41.0 % (37.0-80.0) Lymphocytes (%) (Auto) 48.7 % (10.0-50.0) Monocytes (%) (Auto) 8.1 % (0.0-12.0) Eosinophils (%) (Auto) 1.4 % (0.0-7.0) Basophils (%) (Auto) 0.8 % (0.0-2.0) Neutrophils # (Auto) 1.7 10 ^3/uL (1.6-8.6) Lymphocytes # (Auto) 2.0 10 ^3/uL (0.4-5.4) Monocytes # (Auto) 0.3 10 ^3/uL (0-1.3) Eosinophils # (Auto) 0.1 10 ^3/uL (0-0.8) Basophils # (Auto) 0 10 ^3/uL (0-0.2) Nucleated Red Blood Cells 0.2 % Prothrombin Time 10.8 sec (9.3-11.8) Prothrombin Time INR 1.02 (0.9-1.15) Activated Partial Thromboplast Time 25.5 SEC (24.5-34.5) Sodium Level 141 mmol/L (136-145) Potassium Level 3.3 mmol/L (3.5-5.1) Chloride Level 105 mmol/L (98-107) Carbon Dioxide Level 26 mmol/L (20-31) Anion Gap 10 (5-15) Blood Urea Nitrogen 14 mg/dL (9-23) Creatinine 0.56 mg/dL (0.550-1.02) Glomerular Filtration Rate Calc 89 mL/min (>90) BUN/Creatinine Ratio 25.0 (10.0-20.0) Serum Glucose 124 mg/dL (74-106) Calcium Level 9.0 mg/dL (8.7-10.4) Total Bilirubin 0.5 mg/dL (0.2-1.0) Aspartate Amino Transferase (AST) 28 U/L (13-40) Alanine Aminotransferase (ALT) 37 U/L (7-40) Alkaline Phosphatase 42 U/L (46-116) Total Protein 6.4 g/dL (5.7-8.2) Albumin 3.8 g/dL (3.2-4.8) Thyroid Stimulating Hormone (TSH) 1.69 uIU/mL (0.55-4.78) Urine Color Colorless (Yellow) Urine Clarity Clear (Clear) Urine pH 5.5 (5.0-9.0) Urine Specific Henriette 1.009 (1.001-1.035) Urine Protein Negative (Negative) Urine Ketones Negative (Negative) Urine Blood Negative /uL (Negative) Urine Nitrite Negative (Negative) Urine Bilirubin Negative (Negative) Urine Urobilinogen Normal mg/dL (Negative) Urine Leukocyte Esterase 2+ /uL (Negative) Urine RBC <1 /hpf (0 - 4) Urine Microscopic WBC 6 /HPF (0-5) Urine Squamous Epithelial Cells Few /hpf (<5) Urine Bacteria None seen /hpf (None Seen) Urine Glucose Normal mg/dL (Normal) Urine Opiates Screen Neg (NEGATIVE) Urine Fentanyl Screen Neg (NEGATIVE) Urine Barbiturates Screen Neg (NEGATIVE) Urine Phencyclidine Screen Neg (NEGATIVE) Urine Amphetamines Screen Neg (NEGATIVE) Urine Benzodiazepines Screen Neg (NEGATIVE) Urine Cocaine Screen Neg (NEGATIVE) Urine Cannabinoids Screen Neg (NEGATIVE) Troponin I High Sensitivity 3 ng/L (</=34) Triglycerides Level 157 mg/dL (< 150) Cholesterol Level 197 mg/dL (< 200) LDL Cholesterol 125 mg/dL (< 100) HDL Cholesterol 59 mg/dL (40-59) Hemoglobin A1c 7.9 % A1C (<5.7) B-Type Natriuretic Peptide 58.66 pg/mL (0-100) Other Laboratory Tests 03/15/25 05:20 Brief Hx & Hospital Course: History of Present Illness Patient is a 85-year-old [place]-speaking female with past medical history of hypertension, hyperlipidemia, came to the ED with chief complaints of chestpain which is 7/10 in intensity, nonradiating, increased with exertion, decreased with rest and associated with left arm numbness since 1 week. Patient states with the pain comes and goes and is also associated with hot flashes, and mild shortness of breath. Course of hospitalization: Patient had EKG which was negative for any acute ST changes. Troponins were negative x3. Cardiology consultation was obtained. Echocardiogram was reviewed without any ischemic changes. Patient has been chest pain free while in the hospital. She is instructed to follow up with her PCP, Dr. Ronquillo in 1-2 weeks and continue all previous home medications. Chest pain probably secondary to uncontrolled blood pressure. Physical examination General: Alert and Oriented x3. No acute distress. Well-nourished. Eyes: EOMI. Anicteric. HENT: Moist mucous membranes. Lungs: Clear to auscultation bilaterally. No accessory muscle use. Cardiovascular: Regular rate and rhythm. No murmur. No JVD. Abdomen: Soft, non-tender and non-distended. No palpable masses. Extremities: No edema. Non-tender. Skin: No rashes or lesions. Warm. Neurologic: No focal neurological deficits. CN II-XII grossly intact, but not individually tested. Psychiatric: Cooperative. Appropriate mood and affect. Total time spent with patient discussing and formulating plan of care: 35 minutes. This medical document was created using an electronic medical record system with [employer] dictation system. Although this document has been carefully reviewed, there may still be some phonetic and typographical errors. These areas are purely typographical due to imperfections of the software programs, and do not reflect any compromise in the patient's medical care. Consults/Reason for consult Cardiology: Rule out ACS Condition at Discharge: Fair Final Diagnosis/Problems List Chest pain, acute coronary syndrome ruled out. Chest pain secondary to hypertensive urgency -dyslipidemia -primary hypertension -diabetes mellitus -obesity Discharge Disposition: Home Discharge Instruct/Medications Diet: Cardiac 2g Na,low cholest Activity: No Restrictions, As Tolerated Follow Up/Referral: Follow up with PCP, Dr. Ronquillo in 1-2 weeks Medications: Continue all home medication Scheduled Hctz (Hydrochlorothiazide), 1 TAB PO DAILY, (Reported) Pravastatin Sodium (Pravachol Tablet), 40 MG PO HS, (Reported) 36 Discharge Statement: "Patient was advised to return to the ER or call 911 if any headaches, dizziness, shortness of breath, chest pain, abdominal pain, bleeding, fevers, or worsening of medical condition. Patient was counseled about treatment plan, medications, possible side effects, patientverbalized understanding. All questions were answered to the best of my ability. This discharge took greater then 30 minutes in planning, reviewing documentation, counseling the patient, and discussing with other team members." ASSESSMENT ASSESSMENT Assessment Chest pain, acute coronary syndrome ruled out Date of Service: Mar 16, 2025 Billing Provider: MALLORY NATH NP Common Visit Codes: 35845-NAN/OBS DISCH DAY >30min MALLORY NATH NP Mar 16, 2025 14:39
--- NOTE | 2025-03-16 19:34 | DVHPN2 ---
Progress Note - Dictate Date Seen: Mar 16, 2025 Medical Necessity Reason Pt with a Central, PICC or Fol: No Subjective Patient was seen and evaluated in follow up. Echocardiogram showed an LVEF of 65%. I advised the patient to schedule an appointment with cardiology in the outpatient setting for stress test. Patient is cardiac stable for discharge. Telemetry reviewed. vital signs Vital Sign Date Time Temp Pulse Resp B/P (MAP) Pulse Ox O2 Delivery O2 Flow Rate FiO2 03/16/25 16:53 98.0 60 17 99 03/16/25 16:44 123/74 (90) 03/16/25 08:00 Room Air* 0 21 21 Total Intake and Output 03/15/25 03/15/25 03/16/25 15:00 23:00 07:00 Intake Total 450 ml 800 ml Balance 450 ml 800 ml medications Current Medications Medications Dose Ordered Sig/Rola Route Start Time Stop Time Status Last Admin Dose Admin Ondansetron HCl 4 mg Q4HP PRN IV 03/14/25 20:45 Enoxaparin Sodium 40 mg DAILY SC 03/15/25 10:00 03/16/25 09:56 40 MG Atorvastatin Calcium 40 mg HS PO 03/14/25 22:00 03/15/25 22:22 40 MG Lisinopril 10 mg DAILY PO 03/15/25 10:00 03/16/25 09:46 10 MG Metoprolol Succinate 25 mg DAILY PO 03/15/25 10:00 03/16/25 09:53 25 MG Aspirin 81 mg DAILY PO 03/15/25 10:00 03/16/25 09:45 81 MG Pantoprazole Sodium 40 mg DAILY@0600 PO 03/15/25 06:00 03/16/25 05:45 40 MG objective GENERAL: Alert and oriented x 3. No acute distress. EYES: PERRL, EOMI. Anicteric. HENT: Moist mucous membranes. LUNGS: Clear to auscultation bilaterally. CARDIOVASCULAR: Regular rate and rhythm. ABDOMEN: Soft, non-tender and non-distended. EXTREMITIES: No edema. NEUROLOGIC: No focal neurological deficits. SKIN: Warm, dry. laboratory and microbiology Laboratory Tests 03/15/25 05:20 Test 03/15/25 05:20 Range/Units Serum Glucose 124 H 74-106 mg/dL Problem List Hypertensive urgency, now improved. Chest pain- likely noncardiac, ACS ruled out based on negative troponins and normal EKG. Type 2 diabetes. Hyperlipidemia. Obesity. Assessment/Plan Continued all current supportive medical care. Aspirin, Metoprolol, Lipitor. Lisinopril. DVT prophylactics. Additional plan as per the hospital course. Plan discussed with: Patient ELA RO MD Mar 16, 2025 18:28
--- NOTE | 2025-03-17 09:31 | ECG ---
[facility] Test Date: 2025-03-15 Test Time: 14:46:16 Pat Name: NATALEE LOCKHART Department: Room: 0278T B Gender: F Tearer Press Clipping: JT MATTA : 1940 Requested By: TEJINDER PARKER Order Number: [id number] Reading MD: Measurements Intervals [place] Rate: 59 P: 66 ND: 212 QRS: 34 QRSD: 76 T: 31 QT: 422 QTc: 418 Interpretive Statements Sinus rhythm Borderline prolonged ND interval Please click the below link to view image of tracing.
== END 2025-03-16 18:18 | disposition home or self-care (01) | DRG 305 ==
LOC: ER 17:20 → OVERFLOW 20:43 → TELE-WESTW 22:24
PROVIDERS: ATTEND Emergency Medicine
DX: I16.0 Hypertensive urgency (principal); I20.0 Unstable angina; E11.9 Type 2 diabetes mellitus without complications; E66.9 Obesity, unspecified; H40.89 Other specified glaucoma; E78.5 Hyperlipidemia, unspecified; Z79.899 Other long term (current) drug therapy; Z68.30 Body mass index [BMI] 30.0-30.9, adult
CPT/HCPCS: 36415; 71045; 80053; 80061; 80307; 81001; 83036; 83880; 84443; 84484; 85025; 85610; 85730; 93005; 93306; G0378